=== PATIENT | male | born 1950 | race Caucasian/White ===

== ENCOUNTER → 2019-04-28 | Day surgery (SDC) | payer MEDICARE ==
[~2019-04-28] MED LIST: ASPI81TA50 PO; HYDROmorphone 2 MG/ML VIAL IV PRN; IV RINGERS,LACTATED 1000ML 1,000 ML IV SCH; LIDOCAINE 2% PF 5 ML VIAL. ONE; MORPHINE SULFATE 2 MG/ML VIAL. IV PRN; ONDANSETRON PF 4 MG/2 ML VIAL. IV PRN; PROCHLORPERAZINE 10 MG/2 ML VIAL. IV PRN; PROPOFOL 40 ML IV ONE; fentaNYL PF VIAL 100 MCG/2 ML VIAL IV PRN
[2019-04-28 10:42] VITALS: BP 126/69
--- NOTE | 2019-04-28 11:30 | EKG ---
[facility] [address] [place] [address] Test Date: 2019-04-28 Test Time: 10:39:24 Pat Name: CHAZ WILLARD Department: Room: Gender: M Senior [employer] Developer: : 1950 Requested By: TAMERA COLEMAN Order Number: [id number] Reading MD: Measurements Intervals [place] Rate: 131 P: MS: QRS: -10 QRSD: 84 T: 38 QT: 300 QTc: 448 Interpretive Statements IRREGULAR RHYTHM, NO P-WAVE FOUND VENTRICULAR PREMATURE COMPLEX(ES) LEFTWARD AXIS QRS(T) CONTOUR ABNORMALITY CONSIDER ANTEROSEPTAL MYOCARDIAL DAMAGE CONSISTENT WITH INFERIOR INFARCT PROBABLY OLD ABNORMAL ECG RI6.01 No previous ECG available for comparison
== END ==
LOC: ENDOS 08:40
PROVIDERS: ATTEND Internal Medicine Gastroenterology
DX: Z12.11 Encounter for screening for malignant neoplasm of colon (principal); K57.30 Diverticulosis of large intestine without perforation or abscess without bleeding; K64.0 First degree hemorrhoids; F15.90 Other stimulant use, unspecified, uncomplicated; Z98.890 Other specified postprocedural states; Z72.89 Other problems related to lifestyle
CPT/HCPCS: 93005; G0105; J2001; J2704; 45378

== ENCOUNTER → 2019-06-03 | Outpatient (CLI) | payer MEDICARE ==
[2019-04-29 11:00] VITALS: BP 126/74
[~2019-06-03] MED LIST changes: -HYDROmorphone 2 MG/ML VIAL IV PRN; -IV RINGERS,LACTATED 1000ML 1,000 ML IV SCH; -LIDOCAINE 2% PF 5 ML VIAL. ONE; -MORPHINE SULFATE 2 MG/ML VIAL. IV PRN; -ONDANSETRON PF 4 MG/2 ML VIAL. IV PRN; -PROCHLORPERAZINE 10 MG/2 ML VIAL. IV PRN; -PROPOFOL 40 ML IV ONE; -fentaNYL PF VIAL 100 MCG/2 ML VIAL IV PRN
--- NOTE | 2019-06-03 11:29 | CARD ---
MR#: [id number] Date of Study: 06/03/2019 Ordering Physician: SURY KRAUS, Referring Physician: SURY KRAUS, Tech: APPROVED REPORT EXAM: Two-dimensional and M-mode echocardiogram with Doppler and color Doppler. INDICATION Atrial Fibrillation 2D DIMENSIONS RVDd3.6 (2.9-3.5cm)Left Atrium(2D)3.6 (1.6-4.0cm) IVSd1.0 (0.7-1.1cm)Aortic Root(2D)3.3 (2.0-3.7cm) LVDd4.8 (3.9-5.9cm)LVOT Diameter2.2 (1.8-2.4cm) PWd1.1 (0.7-1.1cm)LVDs3.5 (2.5-4.0cm) FS (%) 26.9 %SV55.9 ml Aortic Valve AoV Peak Ervin.133.2cm/Sandra Peak GR.7.1mmHg LVOT Peak Ervin.113.9cm/sAVA (VMAX)3.19cm2 Mitral Valve MV E Nymveatc12.6cm/sMV DECEL OQBQ602rb MV A Qshgyjwj40.9cm/sE/A Ratio0.7 MV A Jefewclc631wx Pulmonary Valve PV Peak Slxdzyns223.6cm/s Tricuspid Valve TR P. Yczpcpkw936tf/sRAP EHIZLKVA80bcWc TR Peak Gr.22mmHg Pulmonary Vein S1 Nnuokgyj71.2cm/sD2 Gxvvmhvn60.5cm/s PVa uetfeunw47wyrw LEFT VENTRICLE The left ventricle is normal size. There is normal left ventricular wall thickness. The left ventricu lar systolic function is normal and the ejection fraction is within normal range. The ejection fracti on is 50-55%. There is normal LV segmental wall motion. Transmitral Doppler flow pattern is Grade I-a bnormal relaxation pattern. There is no ventricular septal defect visualized. RIGHT VENTRICLE The right ventricle is normal size. There is normal right ventricular wall thickness. The right ventr icular systolic function is normal. ATRIA The left atrium size is normal. The right atrium is mildly dilated. The interatrial septum is intact with no evidence for an atrial septal defect or patent foramen ovale as noted on 2-D or Doppler imagi ng. AORTIC VALVE The aortic valve is normal in structure and function. Doppler and Color Flow revealed no significant aortic regurgitation. There is no significant aortic valvular stenosis. MITRAL VALVE The mitral valve is normal in structure and function. There is no mitral valve stenosis. Doppler and Color-flow revealed trace mitral regurgitation. TRICUSPID VALVE The tricuspid valve is normal in structure and function. Doppler and Color Flow revealed trace to mil d tricuspid regurgitation. PAP is estimated at 25 mmHg. There is no tricuspid valve stenosis. PULMONIC VALVE The pulmonary valve is normal in structure and function. Doppler and Color Flow revealed trace to mil d pulmonic valvular regurgitation. There is no pulmonic valvular stenosis. GREAT VESSELS The aortic root is normal in size. The ascending aorta is normal in size. The pulmonary artery is nor mal. The IVC is normal in size and collapses >50% with inspiration. PERICARDIAL EFFUSION There is no pleural effusion. There is no evidence of significant pericardial effusion. Critical Notification Critical Value: No <Conclusion> The left ventricle is normal size. The left ventricular systolic function is normal and the ejection fraction is within normal range. The ejection fraction is 50-55%. Doppler and Color Flow revealed no significant aortic regurgitation. There is no significant aortic valvular stenosis. Doppler and Color-flow revealed trace mitral regurgitation. Doppler and Color Flow revealed trace to mild tricuspid regurgitation. PAP is estimated at 25 mmHg. Signed by : Jh Montague MD Electronically Approved : 06/03/2019 11:29:00
== END | disposition home or self-care (01) ==
LOC: ECHO 09:54
PROVIDERS: ATTEND Internal Medicine Cardiovascular Disease
DX: I08.8 Other rheumatic multiple valve diseases (principal); I48.91 Unspecified atrial fibrillation
CPT/HCPCS: 93306

== ENCOUNTER → 2019-12-02 | Outpatient (CLI) | payer MEDICARE, OTHER ==
[2019-04-29 11:00] VITALS: BP 126/74
[~2019-12-02] MED LIST changes: +REGADENOSON 0.4 MG/5 ML DISP.SYRIN. IV ONE
--- NOTE | 2019-12-02 17:44 | RAD ---
MR#: [id number] Date of Study: 12/02/2019 Ordering Physician: SURY KRAUS, Referring Physician: JOANNA MELENDEZ Tech: VLADIMIR Garber APPROVED REPORT Test Type: Pharmacological Stress Nurse/Tech: Sylvia Sierra RN Test Indications: A fib Cardiac History: Afib, See EMR Medications: ASA, See EMR Medical History: Asthma, See EMR Resting ECG: SR Resting Heart Rate: 67 bpm Resting Blood Pressure: 148/88mmHg Pretest Chest Pain: No chest pain Nurse/Tech Notes Lungs CTA, Heart tones regular. Consent: The procedure was explained to the patient in lay terms. Informed consent was witnessed. Jarrod eout was entered into [employer]. History and Stress Test performed by FARNAZ Houston, JUAN MANUEL (R) (N) Pharm. Details Pharmacologic stress testing was performed using 0.4mg per 5ml of regadenoson given intravenously ove r 7-10 seconds. Stress Symptoms No chest pain or symptoms. POST EXERCISE Reason for Termination: Infusion complete Max HR: 83 bpm Max Blood Pressure: 147/66mmHg Blood Pressure response to exercise: Normal blood pressure response during stress. Heart Rate response to exercise: WNL Chest Pain: No. Arrhythmia: Yes. PVCs ST Change: No. INTERPRETATION Stress EKG Conclusion: No evidence of stress induced EKG changes. Imaging Protocol IMAGE PROTOCOL: Rest Tc-99m/stress Tc-99m 1 day Rest: Stress: Viability: Radiopharm.Tc99m NcemdgnceNd68u Sestamibi Itaz48hIp 33mCi Duration 15min. 10min. Img Date 12/02/2019 12/02/2019 Inj-Img Nibd94kbl. 60min. Rest Admin Site:IV - Left WristAdministrator:VLADIMIR Garber Stress Admin Site: IV - Left WristAdministrator: FARNAZ Houston, BARTOLOT (R)(N) STRESS DATA End Diast. Vol.110.0mlAv. Heart Rate79.0bpm End Syst. Vol.29.0mlCO Index BSA0.0L/min Myocardial Arjx719.0gEject. Ynoosnhm79.0% Stress Rates Pk. Fill Rate2.90EDV/secLVtime Pk. Fill 128.68msec Pk. Empty Rate4.27ESV/secLVtime Pk. Jbrsu163.74msec 05/08 Pk. Fill1.65EDV/sec Stress Scores Regional WT0.00Summed WT0.00 Regional WM0.00Summed WM2.00 The rest and stress images show normal perfusion, normal contraction and thickening. LV Perf. Quant 17 Seg. SSS0.00 17 Seg. SRS0.00 17 Seg. SDS0.00 Stress Defect Extent (% LAD)0.00Rest Defect Extent (% LAD)0.00Rev. Defect Extent (% LAD)0.00 Stress Defect Extent (% LCX) 0.00Rest Defect Extent (% LCX)0.00Rev. Defect Extent (% LCX)0.00 Stress Defect Extent (% RCA)0.00Rest Defect Extent (% RCA)0.00Rev. Defect Extent (% RCA)0.00 Stress Defect Extent (% FLAKO)0.00Rest Defect Extent (% FLAKO)0.00Rev. Defect Extent (% FLAKO)0.00 Other Information Quality:Good Risk Assessment: Low Risk Conclusion 1. No evidence of EKG changes with stress testing. 2. Normal perfusion at stress/rest. 3. Low risk study. 4. EF > 60%. Signed by : Renato Hartman, Electronically Approved : 12/02/2019 17:44:19
== END | disposition home or self-care (01) ==
LOC: NM 08:33
PROVIDERS: ATTEND Internal Medicine Cardiovascular Disease
DX: I48.0 Paroxysmal atrial fibrillation (principal)
CPT/HCPCS: 78452; 93017; A9500; J2785

== ENCOUNTER → 2021-06-14 | Outpatient (CLI) | payer OTHER ==
[2019-04-29 11:00] VITALS: BP 126/74
[~2021-06-14] MED LIST changes: -REGADENOSON 0.4 MG/5 ML DISP.SYRIN. IV ONE
--- NOTE | 2021-06-14 17:20 | CARD ---
MR#: [id number] Date of Study: 06/14/2021 Ordering Physician: SURY KRAUS, Referring Physician: SURY KRAUS Tech: Clementina Aguilar [facility] APPROVED REPORT EXAM: Two-dimensional and M-mode echocardiogram with Doppler and color Doppler. Other Information Quality : AverageHR: 62bpm Rhythm : NSR INDICATION Palpitations 2D DIMENSIONS RVDd3.5 (2.9-3.5cm)Left Atrium(2D)3.3 (1.6-4.0cm) IVSd0.9 (0.7-1.1cm)Aortic Root(2D)3.4 (2.0-3.7cm) LVDd5.1 (3.9-5.9cm)LVOT Diameter2.0 (1.8-2.4cm) PWd1.0 (0.7-1.1cm)LVDs3.4 (2.5-4.0cm) FS (%) 32.4 %SV73.4 ml Aortic Valve AoV Peak Ervin.140.9cm/sAoV VTI29.3cm AO Peak GR.7.9mmHgLVOT Peak Ervin.114.6cm/s AO Mean GR.4mmHgAVA (VMAX)2.61cm2 Mitral Valve MV E Larrectd76.5cm/sMV DECEL OBWI938il MV A Nzaqcmdt12.8cm/sE/A Ratio0.9 Pulmonary Valve PV Peak Wwmycits489.8cm/s Tricuspid Valve TR P. Xlqvuczj870fg/sTR Peak Gr.28mmHg LEFT VENTRICLE The left ventricle is normal size. There is normal left ventricular wall thickness. The left ventricu lar systolic function is normal and the ejection fraction is within normal range. LV ejection fracti on of 50-55%. There is normal LV segmental wall motion. Transmitral Doppler flow pattern is Grade I-a bnormal relaxation pattern. RIGHT VENTRICLE The right ventricle is normal size. There is normal right ventricular wall thickness. The right ventr icular systolic function is normal. ATRIA The left atrium size is normal. The right atrium size is normal. The interatrial septum is intact wit h no evidence for an atrial septal defect or patent foramen ovale as noted on 2-D or Doppler imaging. AORTIC VALVE The aortic valve is normal in structure and function. Doppler and Color Flow revealed no significant aortic regurgitation. There is no significant aortic valvular stenosis. MITRAL VALVE The mitral valve is normal in structure and function. There is no evidence of mitral valve prolapse. There is no mitral valve stenosis. Doppler and Color-flow revealed trace mitral regurgitation. TRICUSPID VALVE The tricuspid valve is normal in structure and function. Doppler and Color Flow revealed mild tricusp id regurgitation. Estimated PAP 32 mmHg. There is no tricuspid valve stenosis. PULMONIC VALVE The pulmonary valve is normal in structure and function. Doppler and Color Flow revealed mild pulmoni c valvular regurgitation. GREAT VESSELS The aortic root is normal in size. The ascending aorta is normal in size. The IVC is normal in size a nd collapses >50% with inspiration. PERICARDIAL EFFUSION There is no evidence of significant pericardial effusion. Critical Notification Critical Value: No <Conclusion> The left ventricle is normal size. The left ventricular systolic function is normal and the ejection fraction is within normal range. LV ejection fraction of 50-55%. Doppler and Color Flow revealed no significant aortic regurgitation. There is no significant aortic valvular stenosis. Doppler and Color-flow revealed trace mitral regurgitation. Doppler and Color Flow revealed mild tricuspid regurgitation. Estimated PAP 32 mmHg. Signed by : Jh Montague MD Electronically Approved : 06/14/2021 17:20:10
== END ==
LOC: ECHO 09:36
PROVIDERS: ATTEND Internal Medicine Cardiovascular Disease
DX: I37.1 Nonrheumatic pulmonary valve insufficiency (principal); I07.1 Rheumatic tricuspid insufficiency; I48.0 Paroxysmal atrial fibrillation
CPT/HCPCS: 93306; C8929